=== PATIENT | female | born 1970 | race Caucasian/White ===

== ENCOUNTER → 2016-03-14 | Outpatient (CLI) | payer BC ==
[2016-03-14 09:21] LABS: BASOPHILS % (AUTO) 0 % (0-2); EOSINOPHILS # (AUTO) 0.1 10^3uL; EOSINOPHILS % (AUTO) 1 % (0-4); MEAN CORPUSCULAR HGB CONC 33.5 g/dL (31.0-37.0); MEAN CORPUSCULAR VOLUME 94 FL (80-100); MEAN PLATELET VOLUME 9.6 FL (6.0-9.5); MONOCYTES # (AUTO) 0.4 X10^3; MONOCYTES % (AUTO) 7 % (3-11); NEUTROPHILS # (AUTO) 3.8 X10^3; NEUTROPHILS % (AUTO) 60 % (51-67); PLATELET COUNT 228 10^3uL (150-450); WHITE BLOOD COUNT 6.35 10^3uL (4.0-11.0)
[2016-03-14 09:22] LABS: MEAN CORPUSCULAR HEMOGLOBIN 31.5 PG (26.0-34.0)
[2016-03-14 09:27] LABS: BILIRUBIN,URINE Negative (Negative); CLARITY,URINE Clear; COLOR,URINE Yellow; GLUCOSE, URINE (UA) Negative (Negative); LEUKOCYTE ESTERASE ,URINE Negative (Negative); UROBILINOGEN,URINE 0.2 mg/dL (0.2-1.0)
[2016-03-14 09:33] LABS: URINE CENTRIFUGED VOLUME 12 mL
[2016-03-14 09:38] LABS: INFLUENZA VIRUS TYPE A ANTIBOD Negative (NEGATIVE); INFLUENZA VIRUS TYPE B ANTIBOD Negative (NEGATIVE)
[2016-03-14 09:55] LABS: ALBUMIN 4.6 g/dL (3.4-5.0); ANION GAP 14.4 MEQ/L (3-15); CALCULATED IONIZED CALCIUM 4.1 mg/dL (3.8-4.6); ERYTHROCYTE SEDIMENTATION RT* 12 mm/hr (0-21); TOTAL PROTEIN 7.5 g/dL (6.4-8.5)
== END ==
LOC: LAB 09:02
PROVIDERS: ATTEND Family Medicine
DX: R53.83 Other fatigue (principal); R68.83 Chills (without fever); M25.551 Pain in right hip; M25.552 Pain in left hip
CPT/HCPCS: 36415; 80053; 81003; 81015; 84439; 84443; 84550; 85025; 85652; 86140; 87040; 87502